=== PATIENT | female | born 1995 | race Caucasian/White ===

== ENCOUNTER 2025-07-13 09:16 | Emergency (ER) | payer MEDICARE, MEDICAID ==
[~2025-07-13] VITALS: Ht 162.6 cm; Wt 67.0 kg
[2025-07-13 10:21] LABS: BASOPHILS % 0.5 % (0.0-2.0); EOSINOPHILS % 0.4 % (0.0-5.0); HEMATOCRIT. 38.3 % (36.0-48.0); HEMOGLOBIN. 12.7 g/dL (12.0-16.0); LYMPHOCYTES % 22.4 % (20.0-50.0); MEAN PLATELET VOLUME 8.4 fl (7.4-10.4); MONOCYTES % 7.0 % (2.0-8.0); NEUTROPHILS % 69.7 % (40.0-76.0); PLATELET 322 x1000/uL (130-400); RED BLOOD CELL COUNT 4.21 mill/uL (4.2-5.4); RED CELL DISTRIBUTION WIDTH 13.8 % (11.6-14.6)
[2025-07-13 10:53] LABS: HCG SCREEN NEGATIVE
[2025-07-13 10:55] LABS: CREATININE 0.9 mg/dL (0.6-1.0); UREA NITROGEN BLOOD 9 mg/dL (9-23)
[2025-07-13 10:56] LABS: ETHANOL BLOOD < 10 mg/dL (<10)
[2025-07-13 10:57] LABS: ASPARTATE AMINOTRANSFERASE 16 IU/L (<34); BILIRUBIN DIRECT 0.3 mg/dL (<=3.0)
[2025-07-13 10:58] LABS: BILIRUBIN TOTAL 0.9 mg/dL (0.1-1.0)
[2025-07-13 11:13] LABS: PROTEIN TOTAL 6.9 g/dL (6.0-8.3)
[2025-07-13] MEDS: ZIPRASIDONE MESYLATE 20MG/VIAL IM ONE (14:06)
[2025-07-13 14:52] VITALS: O2SAT 100
[2025-07-13] MEDS: OLANZAPINE 5MG TABLET ODT PO SCH (14:53)
[2025-07-13] MEDS: LORAZEPAM 2MG/ML UD SYRINGE IM NR (16:39)
[2025-07-14 02:07] LABS: CLARITY URINE CLEAR (CLEAR); COLOR URINE YELLOW (YELLOW); GLUCOSE URINE NEGATIVE (NEGATIVE); KETONES URINE TRACE (NEGATIVE); LEUKOCYTE ESTERASE URINE TRACE (NEGATIVE); NITRITE URINE NEGATIVE (NEGATIVE); OCCULT BLOOD URINE NEGATIVE (NEGATIVE); PH URINE 6.0 (4.5-8.0); PROTEIN URINE NEGATIVE (NEGATIVE); SPECIFIC GRAVITY URINE 1.018 (1.005-1.030); UROBILINOGEN URINE 1.0 E.U./dL (0.2-1.0)
[2025-07-14 02:43] LABS: *AMPHETAMINES SCREEN URINE NEGATIVE (NEGATIVE)
[2025-07-14 02:44] LABS: *BENZODIAZEPINES SCREEN URINE NEGATIVE (NEGATIVE)
[2025-07-14 02:45] LABS: *BARBITURATES SCREEN URINE NEGATIVE (NEGATIVE); *COCAINE SCREEN URINE NEGATIVE (NEGATIVE); CANNABINOID URINE SCREEN NEGATIVE (NEGATIVE); ECSTASY MDMA SCREEN URINE NEGATIVE (NEGATIVE); METHADONE URINE SCREEN NEGATIVE (NEGATIVE); OPIATES URINE SCREEN NEGATIVE (NEGATIVE); PHENCYCLIDINE URINE SCREEN NEGATIVE (NEGATIVE)
[2025-07-14 04:49] LABS: RBC URINE 0-2 /hpf (0-2); SQUAMOUS EPITHELIAL CELL URINE 1+ /lpf (RARE/1+); WBC URINE 0-2 /hpf (0-2)
[2025-07-14 04:50] LABS: BACTERIA URINE TRACE
[2025-07-14 13:33] VITALS: BP 113/64; PULSE 66; RESP 18; TEMP 36.7; O2SAT 100
== END 2025-07-14 13:53 ==
LOC: ER 09:16
DX: R45.851 Suicidal ideations (principal); F31.9 Bipolar disorder, unspecified; F84.0 Autistic disorder; Z20.822 Contact with and (suspected) exposure to COVID-19; Z79.899 Other long term (current) drug therapy
CPT/HCPCS: 80076; 80305; 80048; 81003; 80307; 80329; 80320; 84703; 83735; 85025; 36415; 96372; 99291; 87426; 70450; J3486; 99281; J2060; G0480